=== PATIENT | female | born 1970 | race African-American/Black ===

== ENCOUNTER → 2017-09-03 | Outpatient (CLI) | payer OTHER ==
[~2017-09-03] MED LIST: ACETAMINOPHEN-1 EAC1 PO; ALIVE WOMEN'S1 EAC1 PO; FLEXERIL PO; LEFLUNOMIDE20 MG PO; OMEPRAZOLE40 MG PO; OXYCODONE-ACET1 EACH PO; PREDNISONE 5 MG5 M1 PO
== END ==
LOC: RAD 02:14
DX: Z12.31 Encounter for screening mammogram for malignant neoplasm of breast (principal)

== ENCOUNTER → 2017-11-18 | Outpatient (CLI) | payer OTHER ==
[~2017-11-18] VITALS: Ht 154.9 cm; Wt 67.1 kg
[~2017-11-18] MED LIST changes: -OXYCODONE-ACET1 EACH PO
--- NOTE | ~2017-11-18 | HPC ---
[facility] [place] [address] PAIN MANAGEMENT CONSULTATION Name: ODILIA WILL [id number] Admission: 11/18/17 Attend Phys: Ghulam Zuñiga DO Discharge: Date of : 66 Report #: [id number] THIS REPORT FOR: //name// CC: Ghulam Lu DO DATE OF SERVICE: 11/18/2017 REFERRING PHYSICIAN: Dr. Jarod Bashir. PRIMARY CARE PHYSICIAN: Carlos Valencia DO. CHIEF COMPLAINT: Low back pain, left lower extremity pain with paresthesias. HISTORY OF PRESENT ILLNESS: As you know, the patient is a pleasant 46-year-old female, who has been referred to our service with low back pain, left lower extremity pain with paresthesias. The patient indicates pain began in September without known injury and trauma. The patient states her pain has progressively worsened. The patient states that she sought evaluation through her primary care physician, Dr. Lu, who indicated that patient is likely suffering from lumbar radicular symptoms. She was subsequently sent for MRI. Findings on the MRI show some changes at the L5-S1 level and the patient was subsequently referred to our service to discuss options for treatment. The patient states pain today is described as continuous, steady and constant in its pain pattern. She describes the pain as burning, shooting, cramping, aching, crushing, pulling, gnawing, throbbing, pounding, sharp, stabbing, tender, numbness and tingling. She places current pain score 7-8/10, daily average is 7-8/10, worst pain has been is 10/10. The patient has been referred to our service to discuss pain treatment options for suspected lumbar radiculopathy. The patient states that walking, stretching, standing, walking, virtually everything exacerbates symptoms; nothing to date has improved pain. She has been referred to our service to discuss options for treatment. PAST MEDICAL HISTORY: 1. Seizure disorder. 2. Hypertension. 3. Gastroesophageal reflux disease. 4. Degenerative joint disease. 5. Osteoarthritis. 6. 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 PAST SURGICAL HISTORY: [facility] [address] [place] [address] PAIN MANAGEMENT CONSULTATION Name: ODILIA WILL Room #: REG [facility].#: [id number] Admission: 11/18/17 Attend Phys: Ghulam Zuñiga DO Discharge: Date of : 66 Report #: [id number] 1. Hysterectomy 08/2014. 2. Myomectomy in 2001. SOCIAL HISTORY: The patient denies tobacco, IV or illicit drug use. She admits to an occasional alcohol beverage. She is working, not receiving workmen's compensation nor is she trying to obtain disability benefits. She is not in litigation in regards to her pain. She is unaccompanied at today's visit. REVIEW OF SYSTEMS: Positive for night sweats, fatigue and weakness, frequent and recurrent headaches, wearing corrective eyewear, blurred and double vision, shortness of breath walking or lying flat, palpitations, rectal bleeding, frequent urination, burning urination, nocturia, incontinence, dribbling to urine, sexual difficulty, numbness and tingling sensations involving left lower extremity, history of stroke secondary to lupus anticoagulant, memory loss with confusion, nervousness, excessive thirst, urination, heat and cold intolerance, slow to heal of cuts, bleeding and bruising tendencies. All other review of systems negative per 12-point review of systems other than those listed in history of present illness. Pain impact score 42/70, indicating [id number] interference of daily activities secondary to pain. ALLERGIES: No reported drug allergies. CURRENT MEDICATIONS: Multivitamin 1 tab per day, Tylenol #3 one tab p.o. b.i.d., omeprazole 40 mg per day, leflunomide 20 mg once a day, cyclobenzaprine 10 mg 3 times a day p.r.n., prednisone 5 mg once a day. IMAGING: MRI lumbar spine obtained 10/30/2017 shows L1-L2, L2-L3, L3-L4, L4-L5 unremarkable. At L5-S1, there is anterolisthesis of L5 on S1 facet and ligamentum flavum hypertrophy, diffuse bulging annulus, no evidence of central canal stenosis, mild bilateral neural foraminal stenosis. There appears to be a cystic lesion on the right kidney, they indicate further evaluation with renal ultrasound. PHYSICAL EXAMINATION: VITAL SIGNS: Blood pressure 131/90, pulse 99, respiratory rate 18 and unlabored. The patient is 100% on room air. Height 5 feet 1 inch tall, weight 148 pounds, BMI calculated 28. GENERAL: Well-developed, well-nourished, well-hydrated 46-year-old female. She appears her stated age. She is placing current pain score 7-8/10. HEENT: Normocephalic, atraumatic. Pupils equal, round, reactive to light. Extraocular muscles are intact. Sclerae nonicteric without injection. NEUROLOGIC: Cranial nerves 2-12 grossly intact. Speech fluent. The patient deemed a good historian. LUNGS: Clear; no wheeze, rhonchi or rales. [address] [address] PAIN MANAGEMENT CONSULTATION Name: ODILIA WILL Room #: REG [facility]#: [id number] Admission: 11/18/17 Attend Phys: Ghulam Zuñiga DO Discharge: Date of : 66 Report #: [id number] CARDIOVASCULAR: Regular. No appreciable gallop, no rub. ABDOMEN: Soft, nontender, no hepatosplenomegaly. Normal bowel sounds. EXTREMITIES: Show no clubbing, no cyanosis, no edema. MUSCULOSKELETAL: Lower extremity strength appears equal and symmetrical at 5/5, some giveaway strength noted with hip flexion on the left when compared to the right. She is intact to light touch from L1 through S2 dermatomes. Deep tendon reflexes at patella and Achilles equal and symmetrical. Ankle clonus negative. Babinski is negative. Muscle bulk and tone is symmetrical in lower extremities. Seated straight leg raising negative. Supine straight leg raising equivocal on the left. Negative right. Gait slightly antalgic favoring left lower extremity over right. Lumbar provocation testing including extension, rotation, lateral flexion all intensify axial low back pain, no radiation of symptoms. ASSESSMENT: 1. Lumbar radiculopathy. 2. Mildly displaced lumbar intervertebral disk with radiculopathy. 3. Lumbosacral spondylosis with radiculopathy. PLAN: 1. Based on today's physical exam and history, the patient has provided, the description the patient uses in regards to pain, the distribution of symptoms and the provocating factors, likely source of this pain is lumbar radiculopathy. We had a very long discussion today about lumbar radicular symptoms and how they correlate to her current condition. They do tend to correlate fairly closely though the findings on MRI show only minor changes. We discussed treatment options for lumbar radicular symptoms today. The following was discussed with the patient. We discussed physical therapy, stretching exercises, core strengthening as a very conservative treatment option. We also discussed medication management, the addition of a neuropathic medication such as gabapentin, nortriptyline, amitriptyline, Cymbalta. We discussed lumbar epidural injections under fluoroscopic guidance, spinal cord stimulator therapy and surgical options. After reviewing the risks and benefits of all the proposed treatment options, the patient chose to move forward with physical therapy, but also has requested an epidural injection to alleviate pain as quickly as possible. The patient was advised of third constitution party payer restrictions require that authorization be obtained before we can have the patient undergo an epidural injection. We will begin the authorization process immediately and contact the patient once we have achieved authorization to undergo the procedure. This authorization process takes anywhere from 4-7 working days, we will begin this immediately and contact the patient once we have achieved the approval to go ahead with this first in a series of epidural injections. 2. The patient will be sent for physical therapy twice a week for 4 weeks. We have given the patient a referral to physical therapy facility [place] [address] PAIN MANAGEMENT CONSULTATION Name: ODILIA WILL Room #: REG [facility]#: [id number] Admission: 11/18/17 Attend Phys: Ghulam Zuñiga DO Discharge: Date of : 66 Report #: [id number] will initiate physical therapy as quickly as possible. This should be started before we see her back for the epidural injection. 3. No medication changes made at today's visit. The patient will continue current medical therapy as previously prescribed. 4. We spent over 45 minutes of time today discussing the patient's case. All this was done as medical management. We have reviewed the patient's MRI in its entirety with both digital and plastic modeling. The patient has a full understanding of the findings in her MRI and how they correlate to her symptomology. 5. I wish to thank the referring physician for the opportunity to see this patient in consultation. We will keep you apprised of her response to treatment as we address suspected lumbar radiculopathy. Again, we wish to thank you for the opportunity to see this patient in consultation. By: 0900 1009 Ghulam Zuñiga DO /genet
[2017-11-18 12:28] VITALS: BP 131/90
== END ==
LOC: PAIN 07:01
DX: M47.27 Other spondylosis with radiculopathy, lumbosacral region (principal); I10 Essential (primary) hypertension; G40.909 Epilepsy, unspecified, not intractable, without status epilepticus; K21.9 Gastro-esophageal reflux disease without esophagitis; M19.90 Unspecified osteoarthritis, unspecified site; Z86.73 Personal history of transient ischemic attack (TIA), and cerebral infarction without residual deficits; Z90.710 Acquired absence of both cervix and uterus

== ENCOUNTER → 2017-12-24 | Outpatient (CLI) | payer OTHER ==
[~2017-12-24] VITALS: Ht 154.9 cm; Wt 65.3 kg
[~2017-12-24] MED LIST changes: +OXYCODONE-ACET1 EACH PO
--- NOTE | ~2017-12-24 | HPC ---
[facility] [place] [address] PAIN MANAGEMENT CONSULTATION Name: ODILIA WILL [facility] [id number] Admission: 12/24/17 Attend Phys: Ghulam Zuñiga DO Discharge: Date of : 66 Report #: [id number] THIS REPORT FOR: //name// CC: Ghulam Langston DATE OF SERVICE: 12/24/2017 REFERRING PHYSICIAN: Jarod Bashir MD PRIMARY CARE PHYSICIAN: Carlos Valencia DO CHIEF COMPLAINT: Low back pain and left lower extremity pain and paresthesias. HISTORY OF PRESENT ILLNESS: As you know, the patient is a 47-year-old female who was referred to our service for low back pain and left lower extremity pain and paresthesias, believed to be due to lumbar radiculopathy. We saw the patient in consultation on 11/18/2017, diagnosed with lumbar radiculopathy secondary to the mildly displaced lumbar intervertebral disk. She also has some facet arthropathy changes contributing to her ongoing pain. At that visit, we discussed multiple treatment options, she chose to begin with medical therapy. She contacted our clinic recently wishing to move forward with the epidural injection as one of the treatment options. She has made today's appointment to undergo the procedure. She indicates today pain is a level of 9/10, states that she has had severe restrictions of late due to ongoing pain issues. She has returned requesting this epidural injection in hopes of improving lumbar radicular symptoms. She denies new injury, new trauma or any changes in medical history since our last visit. ALLERGIES: No known drug allergies. CURRENT MEDICATIONS: Multivitamin, Tylenol #3, leflunomide, cyclobenzaprine, prednisone. SOCIAL HISTORY: The patient denies tobacco, IV illicit drug use. Admits to occasional alcohol beverage. She is working, not receiving workmen's compensation. She is accompanied by her , present in room today. IMAGING: No new imaging available. PHYSICAL EXAMINATION: VITAL SIGNS: Blood pressure 125/90, pulse 102, respiratory rate 16, unlabored. The patient is 97% on room air. Height 5 feet 1 inch tall, weight 144 pounds, [facility] [address] [place] [address] PAIN MANAGEMENT CONSULTATION Name: ODILIA WILL Room #: REG [facility].#: [id number] Admission: 12/24/17 Attend Phys: Ghulam Zuñiga DO Discharge: Date of : 66 Report #: [id number] BMI calculated 27.2. GENERAL: Well-developed, well-nourished, well-hydrated 47-year-old female appearing stated age, pain is rated around 9/10. HEENT: Normocephalic, atraumatic. Pupils equal, round, reactive to light. EXTREMITIES: Show no clubbing, no cyanosis, no edema. MUSCULOSKELETAL: Seated straight leg raising negative. Supine straight leg raising positive on the left. Tita's test negative. Modified Gaenslen's positive for axial low back pain. Ankle clonus negative. Babinski is negative. ASSESSMENT: 1. Lumbar radiculopathy. 2. Displacement of lumbar intervertebral disk with radiculopathy. 3. Lumbosacral spondylosis with radiculopathy. 4. Chronic intractable pain. PLAN: 1. The patient returns today in followup visit requesting to undergo epidural injection under fluoroscopic guidance. The patient was originally sent to our clinic for lumbar radicular symptoms, she chose initially to trial conservative medical therapy and physical therapy. This unfortunately has not been effective in contributing to pain relief. She returns today requesting this epidural injection. 2. The patient and I discussed the risks and benefits of a lumbar epidural injection. These risks include but are not necessarily limited to bleeding, bruising, infection, worsening pain, no relief of pain, also risk of temporary or permanent muscle weakness, temporary or permanent nerve damage, possible paralysis and . The patient states she understood and wished to proceed. 3. No medication changes made at today's visit. The patient will continue current medical therapy as previously prescribed. 4. We will see the patient back in followup visit in 1 month for possible next in the series of epidural injections. PROCEDURE NOTE DESCRIPTION OF PROCEDURE: L5-S1 left paramedian epidural steroid injection under fluoroscopic guidance. This is the first procedure of the first series that the patient is undergoing. After obtaining written consent, the patient was taken back to the fluoroscopy suite, placed in a prone position with pillow under the abdomen to decrease lumbar lordosis. The skin overlying the lumbosacral area was then prepped and draped in aseptic fashion. The L5-S1 vertebral interspace was then identified by AP fluoroscopy. The skin and subcutaneous tissue overlying the target site of injection was anesthetized with 3 mL 1% lidocaine. [address] [address] PAIN MANAGEMENT CONSULTATION Name: ODILIA WILL Room #: REG [facility]#: [id number] Admission: 12/24/17 Attend Phys: Ghulam Zuñiga DO Discharge: Date of : 66 Report #: [id number] A 20-gauge 3-1/2 inch Tuohy needle was then advanced under fluoroscopic guidance towards the epidural space using a left paramedian approach. The epidural space was identified using loss of resistance to air technique. After negative aspiration for heme or cerebrospinal fluid, a total of 1 mL of Omnipaque was injected. A lumbar epidurogram was confirmed using both AP and lateral fluoroscopy. After negative aspiration for heme or cerebrospinal fluid, 5 mL of a solution containing 2 mL 40 mg per mL, 80 mg total triamcinolone, 3 mL lidocaine 1% was injected in increments. Contrast spread was noted posterior epidural space. The needle was then retracted approximately half way and needle tract flushed with 1 mL of 1% lidocaine. Needle was then removed. There were no apparent sensory or motor deficits in the lower extremity following the procedure. A sterile bandage was placed over the injection site. The heart rate, pulse, oximetry and blood pressure were continuously monitored after the procedure. There were no apparent complications. The patient tolerated the procedure well and was carefully escorted to the recovery room in stable condition. There were no apparent complications. After meeting discharge criteria, the patient was then discharged home. <ELECTRONICALLY SIGNED> By: Ghulam Zuñiga DO 12/30/17 1252 1207 2038 Ghulam Zuñiga DO /nt
[2017-12-24 09:37] VITALS: BP 125/90
== END | disposition home or self-care (01) ==
LOC: PAIN 11-26 14:17
DX: M51.16 Intervertebral disc disorders with radiculopathy, lumbar region (principal); M47.27 Other spondylosis with radiculopathy, lumbosacral region; G89.29 Other chronic pain; Z79.899 Other long term (current) drug therapy; Z98.890 Other specified postprocedural states

== ENCOUNTER → 2018-07-14 | Outpatient (CLI) | payer OTHER | LOC: RAD 15:11 | DX: Z12.31 Encounter for screening mammogram for malignant neoplasm of breast (principal) ==

== ENCOUNTER → 2018-07-22 | Outpatient (CLI) | payer OTHER ==
[~2018-07-22] VITALS: Ht 154.9 cm; Wt 65.7 kg
--- NOTE | ~2018-07-22 | HPC ---
[facility] [address] [place] [address] PAIN MANAGEMENT CONSULTATION Name: ODILIA WILL Room #: REG [facility].#: [id number] Admission: 07/22/18 Attend Phys: Ghulam Zuñiga DO Discharge: Date of : 66 Report #: [id number] THIS REPORT FOR: //name// CC: Ghulam Lu DATE OF SERVICE: 07/22/2018 CHIEF COMPLAINT: Low back pain, left lower extremity pain and paresthesias. HISTORY OF PRESENT ILLNESS: As you know, the patient is a very pleasant 47-year-old female, referred to our service for low back pain, left lower extremity pain and paresthesias. The patient underwent lumbar epidural injection under fluoroscopic guidance to address lumbar radicular symptoms, 12/24/2017. She apparently did well with the epidural injection and has not returned in followup visit until today on 07/22/2018 where she is reporting pain scores of 6-7/10. She denies new injury, new trauma or any changes in medical history since our last visit. She returns today, discussed the possibility of undergoing next in the series of lumbar epidural injections. The patient reports pain is constant, burning, shooting, cramping, aching, crushing, pulling, gnawing, throbbing, pounding, shooting, stabbing and tender; exacerbated with walking, standing and activity as well as lying down; not moving, medications, heat and cold compresses are conservative treatment options. She returns today to undergo a lumbar epidural injection under fluoroscopic guidance in hopes of improving pain. ALLERGIES: No known drug allergies. CURRENT MEDICATIONS: Percocet 5/325 one tab p.o. q.6 hours p.r.n. for pain, multivitamin 1 tab per day, omeprazole 40 mg per day, leflunomide 20 mg once a day, cyclobenzaprine 10 mg 3 times a day, prednisone 5 mg once a day. SOCIAL HISTORY: The patient denies tobacco, IV illicit drug use. Admits to occasional alcohol beverage. She is working, not receiving workmen's compensation. She is accompanied by her , present in room today. IMAGING: No new imaging available. PHYSICAL EXAMINATION: VITAL SIGNS: Blood pressure 129/86, pulse 82, respiratory rate 16 and unlabored. The patient is 98% on room air. Height 5 feet 1 inches tall, weight 144.8 pounds, BMI calculated 27.4. GENERAL: Well-developed, well-nourished, well-hydrated 47-year-old female appearing stated age, placing current pain score at 6-7/10. HEENT: Normocephalic, atraumatic. Pupils equal, round, reactive to light. [facility] [address] [place] [address] PAIN MANAGEMENT CONSULTATION Name: ODILIA WILL Room #: [facility] [id number] Admission: 07/22/18 Attend Phys: Ghulam Zuñiga DO Discharge: Date of : 66 Report #: [id number] EXTREMITIES: Show no clubbing, no cyanosis, no edema. MUSCULOSKELETAL: Lower extremity strength is symmetrical 5/5. No giveaway strength noted with hip flexion or knee extension. Seated straight leg raising negative. Supine straight leg raising positive. JOSE ANTONIO test negative. ASSESSMENT: 1. Symptomatic lumbar radiculopathy. 2. Displacement of a lumbar intervertebral disk with radiculopathy. 3. Lumbosacral spondylosis with radiculopathy. 4. Chronic intractable pain. PLAN: 1. The patient returns today in followup visit requesting to undergo next in the series of epidural injections under fluoroscopic guidance. The patient was reported to have noted excellent benefit with previous epidural injection provided in December. She returns today to undergo next in the series in hopes of improving pain. She has been advised of risks and benefits, states understood and wished to proceed. 2. The patient was provided no changes in medication therapy. She will continue current treatment as prior prescribed. 3. We will see the patient back in followup visit on an as-needed basis for possible next in the series of lumbar epidural injections. PROCEDURE NOTE DESCRIPTION OF PROCEDURE: L5-S1 left paramedian epidural steroid injection under fluoroscopic guidance. After obtaining written consent, the patient was taken back to fluoroscopy suite, placed in prone position with pillow under abdomen to decrease lumbar lordosis. Skin overlying the lumbosacral area then prepped and draped in aseptic fashion. The L5-S1 vertebral interspace was identified by AP fluoroscopy. Skin and subcutaneous tissue overlying target site of injection anesthetized with 3 mL of 1% lidocaine. A 20-gauge 3-1/2 inch Tuohy needle advanced under fluoroscopic guidance towards the epidural space using left paramedian approach. Epidural space identified using loss of resistance to air technique. After negative aspiration for heme or cerebrospinal fluid, 1 mL of Omnipaque injected. A lumbar epidurogram confirmed using both AP and lateral fluoroscopy. After negative aspiration for heme or cerebrospinal fluid, 5 mL of a solution containing 2 mL 40 mg per mL, 80 mg total triamcinolone, 3 mL of lidocaine 1% injected slowly. Needle retracted nursing home, flushed with 1 mL of 1% lidocaine and removed. Sterile bandage placed over injection site. No new motor deficits present in the lower extremities following procedure. [facility] [place] [address] PAIN MANAGEMENT CONSULTATION Name: ODILIA WILL Room #: REG [facility]#: [id number] Admission: 07/22/18 Attend Phys: Ghulam Zuñiga DO Discharge: Date of : 66 Report #: [id number] The patient tolerated procedure well, carefully escorted to recovery room in stable condition. No apparent complications. After meeting discharge criteria, the patient discharged home. By: [id number] Ghulam Zuñiga DO /nt
[2018-07-22 08:53] VITALS: BP 129/86
--- NOTE | 2018-07-22 09:13 | NUR ---
Pain Clinic Assessment: 1. History of Osteoarthritis: Not Applicable History of Rheumatoid Arthritis: LUPUS 2. Height: 5 ft. 1 in. 154.9 cm. Weight: 144.8 lb. oz. 65.681 kg. Patient's BMI: 27.4 3. Vital Signs: BP: 129/86 Pulse: 82 Resp: 16 Temp: 02 Sat: 98 ECG Mon: 4. Pain Intensity: 6-7 5. Fall Risk: Dizziness: N Needs help standing or walking: N Fallen in the last 3 months: N Fall risk comments: 6. Patient on Blood Thinner: None 7. History of Hypertension: Y 8. Opioid Therapy greater than 6 weeks: N Opiate Contract Signed: 9. Risk Assessment Tool Provided: LOW RISK 0/3 10. Functional Assessment Tool: 11. Recreational Drug Use: Never Drug Type: Tobacco Use: Never Smoker Tobacco Type: Amount or Packs/day: How Many Years: Alcohol Use: Yes Frequency: Quant:
== END | disposition home or self-care (01) ==
LOC: PAIN 07:05
DX: M54.16 Radiculopathy, lumbar region (principal); G89.29 Other chronic pain; Z79.899 Other long term (current) drug therapy

== ENCOUNTER → 2019-07-20 | Outpatient (CLI) | payer OTHER | LOC: BC 07-15 14:45 | DX: Z12.31 Encounter for screening mammogram for malignant neoplasm of breast (principal) ==

== ENCOUNTER → 2020-07-24 | Outpatient (CLI) | payer OTHER | LOC: RAD 13:09 | PROVIDERS: ATTEND Obstetrics & Gynecology | DX: Z12.31 Encounter for screening mammogram for malignant neoplasm of breast (principal) ==

== ENCOUNTER → 2021-07-24 | Outpatient (CLI) | payer OTHER | LOC: RAD 16:06 | PROVIDERS: ATTEND Obstetrics & Gynecology | DX: Z12.31 Encounter for screening mammogram for malignant neoplasm of breast (principal) ==